=== PATIENT | female | born 1950 | race Caucasian/White ===

== ENCOUNTER → 2021-06-03 | Outpatient (CLI) | payer MEDICARE, OTHER ==
[~2021-06-03] MED LIST: HYDACE5 PO; IBUP800 PO; LORA1 PO
== END | disposition home or self-care (01) ==
LOC: LAB 16:12
PROVIDERS: Family Medicine
DX: Z51.81 Encounter for therapeutic drug level monitoring (principal); Z79.899 Other long term (current) drug therapy
CPT/HCPCS: G0480

== ENCOUNTER 2022-02-25 04:31 | Emergency (ER) | payer MEDICARE, OTHER ==
[~2022-02-25] VITALS: Ht 165.1 cm; Wt 86.2 kg
[2022-02-25 05:08] LABS: BASOPHILS ABSOLUTE AUTO 0.03 K/mm3 (0.00-0.23); BASOPHILS PERCENT AUTO 0 % (0-2); EOSINOPHILS PERCENT AUTO 0 % (0-6); Hematocrit 39.1 % (33.0-51.0); Hemoglobin 13.9 g/dL (11.5-16.0); IMMATURE GRAN ABSOLUTE AUTO 0.06 K/mm3 (0.00-0.10); IMMATURE GRAN PERCENT AUTO 1 % (0-1); LYMPHOCYTES ABSOLUTE AUTO 1.33 K/mm3 (0.84-5.20); LYMPHOCYTES PERCENT AUTO 14 % (21-46); MONOCYTES ABSOLUTE AUTO 0.17 K/mm3 (0.16-1.47); MONOCYTES PERCENT AUTO 2 % (4-13); Mean Corpuscular HGB 30.9 pg (26.0-34.0); Mean Corpuscular HGB Conc 35.5 g/dL (31.5-36.5); Mean Corpuscular Volume 87 fL (80-100); Mean Platelet Volume 9.6 fL (9.1-12.4); NEUTROPHILS ABSOLUTE AUTO 7.77 K/mm3 (1.96-9.15); NEUTROPHILS PERCENT AUTO 83 % (41-73); Platelet Count 373 K/mm3 (150-400); RDW Coefficient Variation 11.4 % (11.7-14.2); RDW Standard Deviation 36.4 fL (35.1-46.3); White Blood Cell Count 9.36 K/mm3 (4.00-11.30)
[2022-02-25 05:36] LABS: Albumin, Blood 4.5 g/dL (3.4-5.0); Albumin/Globulin Ratio 1.1 (0.8-1.8); Bilirubin, Total 1.6 mg/dL (0.1-1.0); Bun/Creatinine Ratio 12.8 (12.0-20.0); Calcium, Blood 9.6 mg/dL (8.5-10.1); Creatinine, Blood 1.33 mg/dL (0.40-1.00); Globulin, Blood 4.1 g/dL (2.2-4.0); Potassium, Blood 3.8 mmol/L (3.5-5.5); Total Protein, Blood 8.6 g/dL (6.4-8.2)
[2022-02-25 05:45] LABS: Influenza A, PCR NEGATIVE (NEGATIVE); Influenza B, PCR NEGATIVE (NEGATIVE); Resp Syncytial Virus, PCR NEGATIVE (NEGATIVE); SARS-Cov-2 (COVID-19) PCR, MMC NEGATIVE (NEGATIVE)
[2022-02-25] MEDS ORDERED: ONDA4ODT MM (10:37)
[2022-02-25] MEDS ORDERED: PROM12.5S PR (10:37)
== END 2022-02-25 10:56 | disposition home or self-care (01) ==
LOC: ER 04:31
PROVIDERS: Student in an Organized Health Care Education/Training Program
DX: R11.2 Nausea with vomiting, unspecified (principal); R19.7 Diarrhea, unspecified; B34.9 Viral infection, unspecified; E86.0 Dehydration; Z20.822 Contact with and (suspected) exposure to COVID-19
CPT/HCPCS: 0241U; 36415; 70450; 71045; 74177; 76705; 80053; 83690; 84484; 85025; 93005; 93010; A9270; J1790; J1885; J2405; J2765; J7030; Q9967

== ENCOUNTER 2024-02-21 09:07 | Day surgery (SDC) | payer MEDICARE, OTHER ==
[~2024-02-21] VITALS: Ht 154.9 cm; Wt 84.9 kg
[~2024-02-21 09:07] MED LIST changes: +ONDA4ODT MM; +PROM12.5S PR
[2024-02-21] MEDS ORDERED: EUTHYROX125 MC1 PO (10:10)
[2024-02-21] MEDS ORDERED: TIZANIDINE HCL213 PO (10:10)
[2024-02-21] MEDS ORDERED: Prozac40 MG PO (10:11)
[2024-02-21] MEDS ORDERED: ESTRADIOL1 M1 PO (10:11)
[2024-02-21] MEDS ORDERED: Buspirone HCl15 MG PO (10:11)
[2024-02-21] MEDS ORDERED: TRAZ50 PO (10:12)
[2024-02-21] MEDS ORDERED: OMEP20ER PO (10:12)
[2024-02-21] MEDS ORDERED: LOSA25 PO (10:12)
[2024-02-21] MEDS ORDERED: NS 500 ML IV ONE (10:21)
[2024-02-21] MEDS ORDERED: CeFAZolin Sodium 2,000 MG VIAL ONE (10:38)
[2024-02-21] MEDS ORDERED: NS 1,000 ML IV ONE (11:10)
[2024-02-21] MEDS ORDERED: Midazolam HCl 1MG / ML 2ML Vial ONE (11:51)
[2024-02-21] MEDS ORDERED: FentaNYL Citrate 50 MCG/ML 2 ML Injection ONE ×2 (11:51→12:52)
[2024-02-21] MEDS ORDERED: propofoL 20 ML IV ONE (12:41)
--- NOTE | 2024-02-21 12:46 | NUR ---
02/21/[address] AT BEDSIDE FOR NERVE BLOCK. TIMEOUT AT 1219, START AT 1222, END 1236. PT GIVEN VERSED, PLACED ON MONITOR AND 2 L O2. TOLERATED PROCEDURE WELL.
[2024-02-21] MEDS ORDERED: Dexamethasone Sod Phos 10 MG/ML 1ML VIAL ONE (13:00)
[2024-02-21] MEDS ORDERED: Glycopyrrolate 0.2 MG/ML 5ML VIAL ONE (13:00)
[2024-02-21] MEDS ORDERED: Ondansetron HCl 2 MG / ML 2ML Vial ONE ×2 (13:00→14:01)
[2024-02-21] MEDS ORDERED: Bupivacaine 0.5% HCl 5 MG/ML 30MLVIAL ONE (13:02)
[2024-02-21] MEDS ORDERED: SuccINYLCHOLINE Chloride 100 MG/5 ML 5MLSYR ONE (13:21)
--- NOTE | 2024-02-21 14:10 | NUR ---
02/21/[address] ZOFRAN 4MG IV GIVEN AT 1408 FOR COMPLAINT OF NAUSEA
[2024-02-21 14:12] VITALS: BP 89/56
== END 2024-02-21 14:36 | disposition home or self-care (01) ==
LOC: ORSCSDS 09:07
DX: M18.12 Unilateral primary osteoarthritis of first carpometacarpal joint, left hand (principal); M65.4 Radial styloid tenosynovitis [de Quervain]; M67.432 Ganglion, left wrist; I10 Essential (primary) hypertension; E78.5 Hyperlipidemia, unspecified; K21.9 Gastro-esophageal reflux disease without esophagitis; Z87.891 Personal history of nicotine dependence; E03.9 Hypothyroidism, unspecified; F32.A Depression, unspecified; E66.9 Obesity, unspecified; Z68.35 Body mass index [BMI] 35.0-35.9, adult; Z79.899 Other long term (current) drug therapy; G47.33 Obstructive sleep apnea (adult) (pediatric)
CPT/HCPCS: 88304; C1713; J0330; J0690; J1100; J2250; J2405; J2704; J3010; J7040

== ENCOUNTER 2024-08-27 16:44 | Emergency (ER) | payer OTHER ==
[~2024-08-27] VITALS: Ht 154.9 cm; Wt 81.7 kg
[~2024-08-27 16:44] MED LIST changes: +Buspirone HCl15 MG PO; +ESTRADIOL1 M1 PO; +EUTHYROX125 MC1 PO; +LOSA25 PO; +OMEP20ER PO; +Prozac40 MG PO; +TIZANIDINE HCL213 PO; +TRAZ50 PO
[2024-08-27 18:04] LABS: BASOPHILS ABSOLUTE AUTO 0.09 K/mm3 (0.00-0.23); BASOPHILS PERCENT AUTO 1 % (0-2); EOSINOPHILS ABSOLUTE AUTO 0.07 K/mm3 (0.00-0.68); EOSINOPHILS PERCENT AUTO 1 % (0-6); Hematocrit 38.1 % (33.0-51.0); Hemoglobin 13.3 g/dL (11.5-16.0); IMMATURE GRAN ABSOLUTE AUTO 0.03 K/mm3 (0.00-0.10); IMMATURE GRAN PERCENT AUTO 0 % (0-1); LYMPHOCYTES ABSOLUTE AUTO 3.56 K/mm3 (0.84-5.20); LYMPHOCYTES PERCENT AUTO 34 % (21-46); MONOCYTES ABSOLUTE AUTO 0.72 K/mm3 (0.16-1.47); MONOCYTES PERCENT AUTO 7 % (4-13); Mean Corpuscular HGB 30.1 pg (26.0-34.0); Mean Corpuscular HGB Conc 34.9 g/dL (31.5-36.5); Mean Corpuscular Volume 86 fL (80-100); Mean Platelet Volume 9.5 fL (9.1-12.4); NEUTROPHILS ABSOLUTE AUTO 6.12 K/mm3 (1.96-9.15); NEUTROPHILS PERCENT AUTO 58 % (41-73); Platelet Count 406 K/mm3 (150-400); RDW Coefficient Variation 12.2 % (11.7-14.2); Red Blood Cell Count 4.42 M/mm3 (3.80-5.20); White Blood Cell Count 10.59 K/mm3 (4.00-11.30)
[2024-08-27 18:38] LABS: Albumin, Blood 4.4 g/dL (3.4-5.0); Bilirubin, Total 0.8 mg/dL (0.1-1.0); Bun/Creatinine Ratio 18.6 (12.0-20.0); Calcium, Blood 10.9 mg/dL (8.5-10.1); Creatinine, Blood 1.13 mg/dL (0.40-1.00); Globulin, Blood 4.2 g/dL (2.2-4.0); Potassium, Blood 4.3 mmol/L (3.5-5.5); Total Protein, Blood 8.6 g/dL (6.4-8.2)
[2024-08-27] MEDS ORDERED: Ondansetron HCl 2 MG / ML 2ML Vial IV ONE (20:20)
[2024-08-27] MEDS ORDERED: Morphine Sulfate 4 MG/1 ML Injection IV ONE ×2 (20:20→22:55)
[2024-08-27] MEDS ORDERED: NS 1,000 ML IV SCH (20:25)
[2024-08-27 21:30] LABS: Source, Urine Clean Catch
[2024-08-27 21:34] LABS: Bilirubin, Urine Neg (Neg); Blood, Urine Neg (Neg); Glucose Qualitative, Urine Neg (Neg); Ketones, Urine Neg (Neg); Leukocyte Esterase, Urine Neg (Neg); Nitrite, Urine Neg (Neg); Protein, Urine 1+ (Neg); Urobilinogen, Urine NORM (Normal)
[2024-08-27 21:36] LABS: Appearance, Urine Clear (Clear); Color, Urine Yellow (P-Yellow)
[2024-08-27] MEDS ORDERED: Lidocaine 4% 1 Patch TOP ONE (22:50)
[2024-08-27] MEDS ORDERED: Gabapentin 300 MG Cap PO ONE (22:55)
[2024-08-27] MEDS ORDERED: GABA300 PO (22:55)
[2024-08-27] MEDS ORDERED: LIDO700A20 TOP (22:55)
[2024-08-27] MEDS ORDERED: Percocet 5-3251 EACH PO (22:55)
[2024-08-27 23:20] VITALS: BP 182/96
== END 2024-08-27 23:36 | disposition home or self-care (01) ==
LOC: ER 16:44
PROVIDERS: Student in an Organized Health Care Education/Training Program
DX: B02.29 Other postherpetic nervous system involvement (principal); N28.89 Other specified disorders of kidney and ureter; K21.9 Gastro-esophageal reflux disease without esophagitis; I10 Essential (primary) hypertension; E03.9 Hypothyroidism, unspecified; Z79.899 Other long term (current) drug therapy
CPT/HCPCS: 71046; 74174; 80053; 83690; 84484; 85025; 93005; 93010; 96361; 96374-59; 96375-59; 96376-59; 99284-25; A9270; J2270; J2405; J7030; Q9967